=== PATIENT | male | born 1970 | race Caucasian/White ===

== ENCOUNTER 2018-05-20 14:52 | Outpatient (CLI) | payer OTHER ==
--- NOTE | 2018-05-20 15:51 | ULT ---
TESTICULAR ULTRASOUND: 05/20/18 HISTORY: Erectile dysfunction. Real time imaging of the right and left testes were performed. The right measures 4.6 and left 4.2 c m in size. No testicular mass. 3 mm epididymal cyst was noted on the right side. Small bilateral hydroceles are present. DOPPLER EVALUATION WITH SPECTRAL ANALYSIS: Normal flow is shown to the testes and epididymal regions. Some slight increased flow is seen with Va lsalva in the region with expected varicocele on the left but the vessels are not dilated. IMPRESSION: Small bilateral hydroceles. No evidence of testicular mass. Increased vascularity in the expected loc ation of a hydrocele with Valsalva but vessels do not appear significantly dilated. POS: [facility]
== END 2018-05-20 14:53 | disposition home or self-care (01) ==
LOC: SCSULT 14:52
PROVIDERS: ATTEND Urology
DX: N52.9 Male erectile dysfunction, unspecified (principal); N43.3 Hydrocele, unspecified
CPT/HCPCS: 76870; 93976

== ENCOUNTER 2019-01-09 11:10 | Day surgery (SDC) | payer OTHER ==
[2019-01-08 11:05] VITALS: BMI 36.8
[~2019-01-09 11:10] MED LIST: Dexamethasone 20 MG/5 ML VIAL ONE; Glycopyrrolate 0.2 MG/ML 5 ML SYRINGE ONE; Lidocaine 1% PF 5 ML VIAL ONE; Ondansetron PF 4 MG/2 ML Vial ONE; PHENYLEPHRINE-NS 100 MCG/ML 10 ML SYRINGE ONE; PROPOFOL 200 MG/20 ML VIAL ONE; Rocuronium Bromide 10 MG/ML (10ML VIAL) ONE
[2019-01-09] MEDS ORDERED: Oxymetazoline HCl 0.05% ( 15 ML ) ONE ×2 (11:36→13:24)
[2019-01-09] MEDS ORDERED: Lidocaine 1% w/Epinephrine 1:100K 20 ML VIAL ONE (13:23)
[2019-01-09] MEDS ORDERED: Bacitracin Zinc Ointment 30 gm TUBE ONE (13:24)
[2019-01-09] MEDS ORDERED: Midazolam HCl 2 mg/2 ml Vial ONE (13:38)
[2019-01-09] MEDS ORDERED: Fentanyl 100 MCG/2 ML VIAL ONE ×2 (13:38→13:39)
[2019-01-09] MEDS ORDERED: CEFAZOLIN 1 GM VIAL ONE (14:03)
[2019-01-09] MEDS ORDERED: Promethazine HCl 25 MG/ML VIAL ONE (15:25)
[2019-01-09] MEDS ORDERED: Ondansetron PF 4 MG/2 ML Vial ONE (16:27)
[2019-01-09] MEDS ORDERED: HYDROcodone/Acetaminophen 5/325 mg Tablet ONE (17:04)
--- NOTE | 2019-01-11 17:24 | EKG ---
Test Reason : PREOP Blood Pressure : / mmHG Vent. Rate : 068 BPM Atrial Rate : 068 BPM P-R Int : 184 ms QRS Dur : 076 ms QT Int : 388 ms P-R-T Axes : 029 004 011 degrees QTc Int : 412 ms Normal sinus rhythm Possible Inferior infarct , age undetermined Abnormal ECG When compared with ECG of 25-FEB-2007 00:24, Borderline criteria for Inferior infarct are now Present Confirmed by FAB PRESTON (2) on 01/11/2019 5:23:47 PM Referred By: [facility] Confirmed By:FAB PRESTON
--- NOTE | 2019-01-12 11:27 | OP ---
DATE OF PROCEDURE: 01/09/2019 PREOPERATIVE DIAGNOSES: Septal deviation with nasal obstruction and turbinate hypertrophy, obstructive sleep apnea, eardrum perforation from trauma. POSTOPERATIVE DIAGNOSES: Septal deviation with nasal obstruction and turbinate hypertrophy, obstructive sleep apnea, eardrum perforation from trauma. PROCEDURES PERFORMED: Exam under anesthesia of right ear, septoplasty, submucosal reduction of inferior turbinates, and reconstruction of external nasal valve. CONSENT FORM: Procedures, benefits, risks including bleeding, infection, injury, anesthesia, allergic reactions, cerebrospinal fluid leak, necessitating revision, repair, and alternatives reviewed with the patient and family, who expressed understanding of the information. Consent form was signed and witnessed. A paper copy of the consent form is available on the review for review in the paper chart. INDICATIONS: This is a male patient, who is struggling with obstructive sleep apnea and significant nasal congestion, including external nasal valve collapse, turbinate hypertrophy, and septal deviation as well as previous trauma to the ear causing a perforation of the ear, which is resolving. The patient is requesting that the ear be evaluated because of previous bleeding from the ear canal and the patient was brought to the operating room now for operative intervention. GRINDER CHIPPER: None. FINDINGS: Severe septal deviation with an accordion shape to the left and to the right. Right EAC is clear without debris and TM is intact with resolving perforation with small resolving fibrotic area and significant turbinate hypertrophy. DESCRIPTION OF PROCEDURE: The patient was brought to the operating room and laid supine on the operating room table. General endotracheal anesthesia was administered. The operative microscope was brought into place and external ear was evaluated. No interventions to the external ear or TM were needed. Please see findings for description. Next, the septum was infiltrated bilaterally with 1% lidocaine to 1:100,000 epinephrine 5 mL. Six Afrin-soaked cottonoids were placed bilaterally into the bilateral nasal cavity on each side. The patient was then prepped and draped in the usual fashion. The 0-degree endoscope was inserted to evaluate the nasal cavity bilaterally and evaluate the deviation, which was significant. The patient was seen to have septal deviation both on the left and right side with significant turbinate hypertrophy and nasal valve collapse. At this time, a left [place] incision was made with elevation of mucoperichondrial flap. The bony cartilaginous junction was identified and disarticulated and the opposite side was elevated as well. The bony spur was taken along the floor as well as the cartilage deviation utilizing a 15 blade scalpel as well as a Oleksandr. Care was taken to avoid destabilizing caudal septum or the dorsal septum. A portion of the bony septum was also seen to be deviating over the left side. At this point, this portion was taken down utilizing Oleksandr forceps and double-action scissors. After this was performed, evaluation of the nose was performed with endoscopes and the deviation was repaired. Next, the mucoperichondrial flaps were reapproximated with 4-0 chromic suture on a Cj needle in a mattress fashion and a 5-0 chromic suture was used to close the [place] incision. The bilateral inferior turbinate reductions were then performed. A small stab incision with the oscillating debrider head was made on the inferior anterior aspect of each inferior turbinates followed by elevation with an elevator. Next, the oscillating debrider was placed into the pocket and to remove the erectile tissue from the inferior turbinates on both sides. Thus reducing the size of the inferior turbinates. At this point, an elevator was used to lateralize both inferior turbinates and a suction Bovie was used to seal the opening on the inferior aspect of the inferior turbinates. Next, attention was directed towards the external nasal valve reconstruction for external nasal valve collapse. The area of collapse was identified and an implant was inserted underneath the left cartilage, lower lateral and upper lateral cartilage overhanging the left nasal bone with minimal bleeding. After insertion and palpation of the left external nasal valve was made and there was a stiffer external nasal valve with no collapse. Next, the same procedure was performed on the left side and some minimal bleeding was noted. So, Afrin-soaked pledgets were placed and pressure was placed on both sides and then removed. The nasal cavity was then inspected with the 0-degree endoscope and suction as well as packing with Afrin-soaked pledgets. Concepcion splints were then coated with bacitracin and placed after removal of the Afrin-soaked pledgets bilaterally and then a 2-0 silk suture was used to anchor to the septum bilaterally with the knot on the left side. The patient was turned back to anesthesia for emergence without complications. The estimated blood loss was 25 mL. There were no drains with specimens removed. Job ID: [id number]
== END 2019-01-09 17:55 | disposition home or self-care (01) ==
LOC: SDC 11:10
PROVIDERS: ATTEND Student in an Organized Health Care Education/Training Program
PROC: 09BM8ZZ Excision of Nasal Septum, Via Natural or Artificial Opening Endoscopic (ICD-10-PCS; principal; 2019-01-09)
PROC: 09QM4ZZ Repair Nasal Septum, Percutaneous Endoscopic Approach (ICD-10-PCS; principal; 2019-01-09)
PROC: 09TL7ZZ Resection of Nasal Turbinate, Via Natural or Artificial Opening (ICD-10-PCS; principal; 2019-01-09)
DX: J34.2 Deviated nasal septum (principal); J34.89 Other specified disorders of nose and nasal sinuses; J34.3 Hypertrophy of nasal turbinates; H90.3 Sensorineural hearing loss, bilateral; G47.33 Obstructive sleep apnea (adult) (pediatric); S09.21XA Traumatic rupture of right ear drum, initial encounter; M10.9 Gout, unspecified; X58.XXXA Exposure to other specified factors, initial encounter; Y93.E1 Activity, personal bathing and showering; Z79.1 Long term (current) use of non-steroidal anti-inflammatories (NSAID); Z79.899 Other long term (current) drug therapy
CPT/HCPCS: 93005; 93010; J0131; J0690; J1100; J2001; J2250; J2405; J2550; J2704; J3010